=== PATIENT | female | born 1945 | race Caucasian/White ===

== ENCOUNTER 2018-12-03 12:57 | Day surgery (SDC) | payer BC, MEDICARE ==
[~2018-12-03 12:57] MED LIST: ACETAMINOPHEN 1,000 MG/100 ML BTL IVPB ONE; CEFAZOLIN 2 Gram 2 GM/50 ML BAG IVPB ONE
[2018-12-03] MEDS ORDERED: DEXAMETHASONE 4 MG/ML 1ML VIAL IVP ONE (12:58)
[2018-12-03] MEDS ORDERED: ONDANSETRON HCL IV 4 MG/2 ML VIAL IVP ONE (12:58)
[2018-12-03] MEDS ORDERED: PROPOFOL 10 MG/ML VIAL IV ONE (12:58)
[2018-12-03] MEDS ORDERED: LIDOCAINE 2% MDV (20MG/ML) 20ML VIAL IV ONE (12:58)
[2018-12-03] MEDS ORDERED: MIDAZOLAM HCL 2MG/2ML VIAL IV ONE (12:58)
[2018-12-03] MEDS ORDERED: DESFLURANE 240 ML BTL INH ONE (12:58)
[2018-12-03] MEDS ORDERED: FENTANYL PF 100MCG/2ML VIAL IV ONE (12:58)
[2018-12-03] MEDS ORDERED: RINGERS SOLUTION,LACTATED 1,000 ML IV ONE (13:30)
[2018-12-03] MEDS ORDERED: BUPIVACAINE 0.5% W/EPI MPF 30 ML VIAL SQ ONE (16:45)
[2018-12-03] MEDS ORDERED: METHYLPREDNISOLONE 40MG/VIAL IU ONE (16:50)
[2018-12-03] MEDS ORDERED: MORPHINE SULFATE 5 MG/ML PREFILLED SYRINGE IM ONE (16:51)
--- NOTE | 2018-12-04 11:51 | Operative Note ---
DATE OF SURGERY: 12/03/2018 PREOPERATIVE DIAGNOSIS: Internal derangement of the left knee. POSTOPERATIVE DIAGNOSES: 1. 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 2. Chondral loose bodies. 3. Large unstable chondral lesion medial femoral condyle. 4. Grade 3 chondromalacia of lateral tibial plateau. 5. Flap tear involving the posterior and anterior horn of the lateral meniscus. OPERATION: 1. Left knee arthroscopy with partial lateral meniscectomy. 2. Left knee arthroscopy with chondroplasty of the lateral, medial, and patellofemoral compartments. STAFF SURGEON: Nikunj Combs MD ANESTHESIA: General. PREPARATION: Chloraprep. INDIVIDUAL CONSIDERATIONS: None. PROCEDURE: The patient was taken to the operating room and placed supine on the operating room table. The patient had a successful induction with general anesthetic. The left lower extremity was prepped and draped in the usual fashion. The patient had a superolateral inflow cannula placed. Skin was infiltrated with 0.5% Marcaine with epinephrine prior. A stab wound was made and a large clear effusion was drained. The knee was inflated with normal saline. An inferomedial and an inferolateral portal were made in a similar fashion. The arthroscope was then placed through the inferolateral portal up into the pouch. Patellofemoral compartment showed grade 3 changes throughout the patella and centrally in the notch. This was smoothed off with a shaver. There was loose cartilage debris and a large cartilage piece in the lateral gutter, which was debrided out. Moderate synovitis. Medially, she had basically a large unstable piece of cartilage on the medial femoral condyle looking like an incomplete bite about the size of just less than a quarter. This was debrided back to a stable cartilage rim but there was exposed bone underneath and a chondroplasty was performed there. Tibial plateau was intact. Cruciates were normal. Laterally she had a flap tear involving the anterior and posterior horn of the lateral meniscus, both posteromedially and anteromedially. This was debrided back to a stable rim with a shaver. There was small grade 3 change on the tibial plateau centrally, and this was smoothed with a shaver. The popliteus tendon was normal. Remainder of the meniscus was normal. After irrigation, portals were closed with richard, and 20 mL of 0.5% Marcaine with epinephrine along with 4 mg of morphine and 40 mg of Depo-Medrol were injected into the knee. A sterile bulky compressive dressing was applied. The patient tolerated the procedure well. Needle and sponge counts were correct. Estimated blood loss was minimal. She was taken back to recovery in good condition. There were no complications. ANI
== END 2018-12-03 17:44 | disposition home or self-care (01) ==
LOC: SUR 12:57
PROVIDERS: ATTEND Orthopaedic Surgery
DX: S83.282A Other tear of lateral meniscus, current injury, left knee, initial encounter (principal); M94.262 Chondromalacia, left knee; M24.10 Other articular cartilage disorders, unspecified site
CPT/HCPCS: 29881; 01400; J2405; J3010; J2270; J1030; J7120